=== PATIENT | male | born 1950 | race Hispanic/Latino ===

== ENCOUNTER 2024-09-01 10:10 | Outpatient (CLI) | payer MEDICARE | END 2024-09-01 10:11 | disposition home or self-care (01) | LOC: RAD 10:10 | PROVIDERS: ATTEND Nurse Practitioner Family | DX: J44.9 Chronic obstructive pulmonary disease, unspecified (principal) | CPT/HCPCS: 71046 ==

== ENCOUNTER 2024-09-26 10:15 | Outpatient (CLI) | payer OTHER ==
[~2024-09-26 10:15] MED LIST: Iopamidol 370 76% 100 ML VIAL ONE
== END 2024-09-26 10:16 | disposition home or self-care (01) ==
LOC: BICCT 10:15
PROVIDERS: ATTEND Family Medicine
DX: R91.8 Other nonspecific abnormal finding of lung field (principal); I25.84 Coronary atherosclerosis due to calcified coronary lesion; J43.9 Emphysema, unspecified
CPT/HCPCS: 71260; Q9967